=== PATIENT | female | born 1995 | race Caucasian/White ===

== ENCOUNTER 2019-11-27 04:46 | Emergency (ER) | payer SELFPAY ==
[2019-11-27 05:03] VITALS: BP 133/83
[2019-11-27 06:00] LABS: Bacteria,Urine 1+ /HPF (Negative); Bilirubin,Urine NEG (Negative); Blood,Urine NEG (Negative); Color,Urine Yellow (Yellow); Mucus,Urine FEW /HPF
[2019-11-27 06:01] LABS: HCG Qualitative,Urine Negative (Negative)
--- NOTE | 2019-11-27 06:36 | Emergency Department Report ---
ED Female HPI - General Chief complaint: Urogenital-Female Stated complaint: SIDE PAIN/ABD BURNING Time Seen by Provider: 11/27/19 06:30 Source: patient Mode of arrival: Ambulatory Limitations: No Limitations - History of Present Illness Initial comments: Ms. Goldman is a 24-year-old female who presents for right flank pain radiating to suprapubic x2 days. Has a history of frequent UTI. States urinary frequency and urgency there is no dysuria no hematuria she denies vaginal discharge no concern for STI. There is no fevers or chills no nausea vomiting. Patient denies history of renal stones. Symptoms are rated at 3/10 exacerbated by voiding. Symptoms are relieved by nothing. MD Complaint: dysuria Onset/Timin -: days(s) Location: suprapubic Radiation: R flank Severity: moderate Severity scale (0 -10): 3 Quality: cramping, burning Consistency: intermittent Improves with: none Worsens with: urination Are you Now?: No Last Menstrual Period: 11/18/19 EDC: 08/24/20 Associated Symptoms: dysuria (frequency , urgency ) - Related Data Sexually active: Yes : 1 Para: 1 A: 0 Previous Rx's Medication Instructions Recorded Last Taken Type Ferrous Sulfate [Feosol 325 MG tab] 325 mg PO BID #60 tablet 06/04/16 Unknown Rx Ibuprofen [Motrin 600 MG tab] 600 mg PO Q6H #30 tablet 06/04/16 Unknown Rx oxyCODONE /ACETAMINOPHEN [Percocet 2 tab PO Q4H PRN #30 tablet 06/04/16 Unknown Rx 5/325 mg] Ibuprofen [Motrin 800 MG tab] 800 mg PO Q8HR PRN #30 tablet 11/27/19 Unknown Rx Nitrofurantoin [place]/M-Cryst 100 mg PO BID 7 Days #14 capsule 11/27/19 Unknown Rx [Macrobid CAP] Allergies Allergy/AdvReac Type Severity Reaction Status Date / Time No Known Allergies Allergy Unverified 06/03/16 09:10 ED Review of Systems ROS: Stated complaint: SIDE PAIN/ABD BURNING Other details as noted in HPI Constitutional: denies: chills, fever Eyes: denies: eye pain, eye discharge, vision change ENT: denies: ear pain, throat pain Respiratory: denies: cough, shortness of breath, wheezing Cardiovascular: denies: chest pain, palpitations Endocrine: no symptoms reported Gastrointestinal: denies: abdominal pain, nausea, diarrhea Genitourinary: urgency, frequency. denies: dysuria, hematuria, discharge, dyspareunia Musculoskeletal: denies: back pain, joint swelling, arthralgia Skin: denies: rash, lesions Neurological: denies: headache, weakness, paresthesias Psychiatric: denies: anxiety, depression Hematological/Lymphatic: denies: easy bleeding, easy bruising ED Past Medical Hx - Past Medical History Hx Hypertension: No Hx Diabetes: No Hx Deep Vein Thrombosis: No Hx Renal Disease: No Hx Sickle Cell Disease: No Hx Seizures: No Hx Asthma: No Hx COPD: No Hx HIV: No - Social History Smoking Status: Never Smoker Substance Use Type: None - Medications Home Medications: Home Medications Medication Instructions Recorded Confirmed Last Taken Type Ferrous Sulfate [Feosol 325 MG tab] 325 mg PO BID #60 tablet 06/04/16 Unknown Rx Ibuprofen [Motrin 600 MG tab] 600 mg PO Q6H #30 tablet 06/04/16 Unknown Rx oxyCODONE /ACETAMINOPHEN [Percocet 2 tab PO Q4H PRN #30 tablet 06/04/16 Unknown Rx 5/325 mg] Ibuprofen [Motrin 800 MG tab] 800 mg PO Q8HR PRN #30 tablet 11/27/19 Unknown Rx Nitrofurantoin [place]/M-Cryst 100 mg PO BID 7 Days #14 capsule 11/27/19 Unknown Rx [Macrobid CAP] ED Physical Exam - General Limitations: No Limitations General appearance: alert, in no apparent distress - Head Head exam: Present: atraumatic, normocephalic - Eye Eye exam: Present: normal appearance, PERRL, EOMI Pupils: Present: normal accommodation - ENT ENT exam: Present: mucous membranes moist - Neck Neck exam: Present: normal inspection, full ROM. Absent: tenderness - Respiratory Respiratory exam: Present: normal lung sounds bilaterally. Absent: respiratory distress, wheezes, stridor, chest wall tenderness - Cardiovascular Cardiovascular Exam: Present: regular rate, normal rhythm, normal heart sounds. Absent: systolic murmur, diastolic murmur, rubs, gallop - GI/Abdominal GI/Abdominal exam: Present: soft, normal bowel sounds. Absent: distended, tenderness, guarding, rebound, rigid, bruit, hernia - Rectal Rectal exam: Present: deferred - Extremities Exam Extremities exam: Present: normal inspection, full ROM. Absent: tenderness - Back Exam Back exam: Present: normal inspection, full ROM, CVA tenderness (R) - Neurological Exam Neurological exam: Present: alert, oriented X3, normal gait - Psychiatric Psychiatric exam: Present: normal affect, normal mood - Skin Skin exam: Present: warm, dry, intact, normal color. Absent: rash ED Course Vital Signs 11/27/19 04:52 Temperature 97.6 F Pulse Rate 97 H Respiratory 18 Rate Blood Pressure 133/83 O2 Sat by Pulse 98 Oximetry ED Medical Decision Making - Lab Data Labs 11/27/19 05:00 Urine Color Yellow Urine Turbidity Slightly-cloudy Urine pH 6.0 Ur Specific [place] 1.032 H Urine Protein 100 mg/dl Urine Glucose (UA) Neg Urine Ketones Neg Urine Blood Neg Urine Nitrite Neg Urine Bilirubin Neg Urine Urobilinogen 2.0 Ur Leukocyte Esterase Mod Urine WBC (Auto) 7.0 H Urine RBC (Auto) 5.0 U Epithel Cells (Auto) 5.0 Urine Bacteria (Auto) 1+ Urine Mucus Few Urine HCG, Qual Negative - Medical Decision Making This is a UTI, plan Macrobid and ibuprofen follow-up with PCP in 2 to 3 days . patient verbalizes agreement and understanding with discharge plan. DC to home in stable condition at this time Critical care attestation.: If time is entered above; I have spent that time in minutes in the direct care of this critically ill patient, excluding procedure time. ED Disposition Clinical Impression: UTI (urinary tract infection) Qualifiers: Urinary tract infection type: acute cystitis Hematuria presence: without hematuria Qualified Code(s): N30.00 - Acute cystitis without hematuria Disposition: DC-01 TO HOME OR SELFCARE Is pt being admited?: No Does the pt Need Aspirin: No Condition: Stable Instructions: Urinary Tract Infection in Women (ED) Prescriptions: Nitrofurantoin [place]/M-Cryst [Macrobid CAP] 100 mg PO BID 7 Days #14 capsule Ibuprofen [Motrin 800 MG tab] 800 mg PO Q8HR PRN #30 tablet PRN Reason: pain Referrals: [facility] [Outside] - 3-5 Days Forms: Work/School Release Form(ED) Time of Disposition: 06:38
== END 2019-11-27 06:42 | disposition home or self-care (01) ==
LOC: ED 04:46
DX: N39.0 Urinary tract infection, site not specified (principal); Z79.899 Other long term (current) drug therapy
CPT/HCPCS: 81001; 81025

== ENCOUNTER 2020-08-13 08:30 | Inpatient (IN) | payer OTHER ==
[2020-08-13] MEDS ORDERED: TERBUTALINE 1 MG/1 ML INJ SUB-Q PRN (10:50)
[2020-08-13] MEDS ORDERED: AMPICILLIN/NS 2 GM/100 ML 2 GM/100 ML BAG IV ONE (10:50)
[2020-08-13] MEDS ORDERED: LIDOCAINE (2%) 20 MG/1 ML VIAL 20 ML MDV INFILTRATI ONE (11:00)
[2020-08-13] MEDS ORDERED: fentaNYL 100 MCG/2 ML INJ IV PRN (11:00)
[2020-08-13] MEDS ORDERED: OXYTOCIN DRIP 30 UNITS/500 ML BAG IV SCH ×3 (11:00→19:00)
[2020-08-13] MEDS ORDERED: ONDANSETRON 4 MG/2 ML INJ IV PRN ×2 (11:00→20:41)
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
[2020-08-13] MEDS ORDERED: BUTORPHANOL 2 MG/1 ML INJ IV PRN (11:30)
[2020-08-13 11:46] LABS: Hematocrit 34.9 % (30.3-42.9); Hemoglobin 11.3 gm/dl (10.1-14.3); Mean Corpuscular HGB Conc 32 % (30-34); Mean Corpuscular Volume 78 fl (79-97); Platelet Count 215 K/mm3 (140-440); Red Cell Distribution Width 18.1 % (13.2-15.2)
--- NOTE | 2020-08-13 11:53 | Ultrasound Report ---
OB ULTRASOUND >= 14 WEEKS FETUS INDICATION: wellbeing COMPARISON: None at this facility FINDINGS: A single gestation intrauterine is present with cephalic presentation. heart tones me asure 140 bpm. Amniotic fluid volume is normal with a fluid index of 9.3. anatomical survey was not performed. Biparietal diameter is 8.6 cm which equals 34 weeks 6 days. Head circumference is 32.6 cm which equals 37 weeks 0 days. Abdominal circumference is 34.8 cm which equals 33 weeks 5 days. Femur length is 7.3 cm which equals 37 weeks 4 days. Overall estimated sonographic age is 37 weeks 0 days. Clinical age is given as 41 weeks 1 day. Cephalic index: 75.8 HC/AC ratio 0.94 Estimated weight: 3304 g +/- 489 g. IMPRESSION: Viable single intrauterine as described Signer Name: Michael Ojeda Jr, MD Signed: 08/13/2020 11:48 AM Workstation Name: [id number]
[2020-08-13] MEDS: LACTATED RINGERS 1,000 ML IV SCH ×2 (12:20→20:00)
[2020-08-13] MEDS: AMPICILLIN/NS 1 GM/50 ML 1 GM/50 ML BAG IV SCH (16:32)
[2020-08-13] MEDS ORDERED: NALOXONE 2 MG/2 ML INJ IV PRN (20:41)
[2020-08-13] MEDS ORDERED: diphenhydrAMINE 50 MG/ML VIAL IV PRN (20:41)
[2020-08-13] MEDS ORDERED: NalbUPHINE 10 MG/1 ML INJ IV PRN (20:41)
[2020-08-13] MEDS ORDERED: DEXMEDETOMIDINE 200 MCG/2 ML VIAL IV ONE (20:43)
--- NOTE | 2020-08-13 20:46 | Anesthesia Consultation ---
Anesthesia Consult and Med Hx Date of service: 08/13/20 - Airway Anesthetic Teeth Evaluation: Good ROM Head & Neck: Adequate Mental/Hyoid Distance: Adequate Mallampati Class: Class II Intubation Access Assessment: Probably Good - Pulmonary Exam CTA: Yes - Cardiac Exam Cardiac Exam: RRR - Pre-Operative Health Status ASA Pre-Surgery Classification: ASA2 Proposed Anesthetic Plan: Epidural - Pulmonary Hx Smoking: No Hx Asthma: No COPD: No Hx Pneumonia: No Hx Sleep Apnea: No - Cardiovascular System Hx Hypertension: No Hx Heart Attack/AMI: No - Central Nervous System Hx Seizures: No Hx Psychiatric Problems: No - Gastrointestinal Hx Gastroesophageal Reflux Disease: No - Endocrine Hx Renal Disease: No Hx End Stage Renal Disease: No Hx Insulin Dependent Diabetes: No Hx Non-Insulin Dependent Diabetes: No Hx Hypothyroidism: No Hx Hyperthyroidism: No - Hematic Hx Anemia: Yes (taking iron) Hx Sickle Cell Disease: No - Other Systems Hx Alcohol Use: No
[2020-08-13] MEDS ORDERED: fentaNYL-BUPIV 2 MCG/ML-0.125% 200 MCG/100 ML BAG EPIDURAL SCH (21:00)
--- NOTE | 2020-08-13 21:02 | Progress Note ---
Labor Epidural - Labor Epidural Start Time: 20:50 Stop Time: 21:02 Performed by:: MARGIE PIRES ([facility]) Procedure: Patient is requesting a laboring epidural for laboring pain. Patient IDed, H&P reviewed, all questions and concerns were answered, and consent was signed. Timeout was performed at bedside. Patient in sitting position. Sterile prep and drape was performed. 3ml of 1% lidocaine skin wheal at L[3]- L [4]. 18-gauge Touhy epidural needle was advanced to loss of resistance with air technique. Negative CSF negative blood. Epidural catheter advanced to [14] centimeters. [-] Aspiration [-] test dose. Sterile dressing applied. Patient tolerated procedure.
[2020-08-13] MEDS: ePHEDrine SULFATE 50 MG/1 ML INJ IV PRN ×2 (21:08→21:21)
[2020-08-13] MEDS ORDERED: MINERAL OIL 30 ML ORAL LIQD PO PRN (22:00)
[2020-08-14] MEDS: AMPICILLIN/NS 1 GM/50 ML 1 GM/50 ML BAG IV SCH (02:55)
[2020-08-14] MEDS: LACTATED RINGERS 1,000 ML IV SCH (03:59)
[2020-08-14] MEDS ORDERED: LIDOCAINE (2%) 20 MG/1 ML VIAL 20 ML MDV INFILTRATI ONE (04:27)
[2020-08-14] MEDS ORDERED: diphenhydrAMINE 25 MG CAP PO PRN (05:15)
[2020-08-14] MEDS ORDERED: WITCH HAZEL/ GLYCERIN PAD TP PRN (05:15)
[2020-08-14] MEDS ORDERED: ACETAMINOPHEN 325 MG TAB PO PRN (05:15)
[2020-08-14] MEDS ORDERED: BENZOCAINE/MENTHOL 20/0.5% TOP SPRAY 56 GM TP PRN (05:15)
[2020-08-14] MEDS ORDERED: HYDROCORTISONE 25 MG RECTAL SUPP PR PRN (05:15)
[2020-08-14] MEDS ORDERED: MAGNESIUM HYDROXIDE (MOM) ORAL LIQD UDC PO PRN (05:15)
[2020-08-14] MEDS ORDERED: ONDANSETRON 4 MG/2 ML INJ IV PRN (05:15)
[2020-08-14] MEDS ORDERED: PROMETHAZINE 25 MG RECT SUPP PR PRN (05:15)
[2020-08-14] MEDS ORDERED: LANOLIN/ZINC/DIMETHICONE (LANSINOH) 7 GM TP PRN (05:15)
[2020-08-14] MEDS ORDERED: PROMETHAZINE 25 MG TAB PO PRN (05:15)
--- NOTE | 2020-08-14 05:15 | Procedure Note ---
OB Delivery Note - Delivery Date of Delivery: 08/14/20 Surgeon: KIM MOORE JR Estimated blood loss: 300cc - Vaginal Delivery presentation: vertex Delivery position: OA Delivery induction: oxytocin Delivery augmentation: pitocin Delivery monitor: external FHT Route of delivery: Delivery placenta: spontaneous Episiotomy: none Delivery laceration: 2nd degree Delivery repair: chromic Anesthesia: local, epidural Delivery comments: Delivery of male at 0420. Weight 3357g. Length 19 inches. Apgars 8/9. Positive void at delivery. Second-degree perineal laceration repaired with 2-0 chromic on SH. - A at 1 minute: 8 at 5 minutes: 9 Gender: Male
[2020-08-14] MEDS ORDERED: OXYTOCIN DRIP 30 UNITS/500 ML BAG IV SCH (06:00)
[2020-08-14] MEDS: IBUPROFEN 600 MG TAB PO SCH ×3 (09:03→23:17)
[2020-08-14] MEDS: oxyCODONE /ACETAMINOPHEN 5-325MG TAB PO PRN ×2 (10:30→20:53)
--- NOTE | 2020-08-14 13:53 | Post Anesthesia Evaluation ---
- Post Anesthesia Evaluation Patient Participated: Yes Airway Patent: Yes Stable Respiratory Function: Yes Nausea/Vomiting: No Temp > 96.8F: Yes Pain Manageable: Yes Adequeate Hydration: Yes Anesthesia Complications: No Block Receding Appropriately: Yes Patient on Ventilator: No
[2020-08-14 18:56] LABS: Hematocrit 30.2 % (30.3-42.9); Hemoglobin 9.7 gm/dl (10.1-14.3)
[2020-08-15] MEDS: oxyCODONE /ACETAMINOPHEN 5-325MG TAB PO PRN ×2 (06:15→16:33)
[2020-08-15] MEDS: IBUPROFEN 600 MG TAB PO SCH ×4 (06:15→18:05)
--- NOTE | 2020-08-15 08:17 | Progress Note ---
Assessment and Plan A: day 1 S/P . Anemia. P: Supplement with iron. Continue current management. Subjective - Subjective Date of service: 08/15/20 Principal diagnosis: day 1 Patient reports: appetite normal, voiding normally, pain well controlled, flatus, ambulating normally, no dizzy ambulation, no nauseated : doing well Objective - Vital Signs Latest vital signs: Vital Signs Temp Pulse Resp BP Pulse Ox 08/15/20 07:35 97.5 F L 65 18 91/42 97 08/15/20 00:22 97.9 F 83 18 111/71 97 08/14/20 15:46 97.8 F 83 18 105/58 94 08/14/20 12:40 97.4 F L 83 18 111/61 97 Intake and Output 08/14/20 08/15/20 08/15/20 23:59 07:59 15:59 Intake Total 600 480 Output Total 600 Balance 0 480 Intake: Oral 240 480 Intake, Free Water 360 Output: Urine 600 Void 600 Other: Total, Intake Amount 240 240 Total, Output Amount 600 # Voids Void 1 1 - Exam Cardiovascular: Present: Regular rate, No murmurs Lungs: Present: Clear to auscultation Abdomen: Present: normal appearance, soft. Absent: distention, tenderness, guarding, rigidity Uterus: Present: normal, firm, fundal height below umbilicus. Absent: bogginess, tenderness Extremities: Present: normal. Absent: tenderness - Labs Labs: Abnormal lab results 08/14/20 Range/Units 18:05 Hgb 9.7 L (10.1-14.3) gm/dl Hct 30.2 L (30.3-42.9) %
[2020-08-15] MEDS ORDERED: FERROUS SULFATE 325 MG TAB PO SCH (10:00)
--- NOTE | 2020-08-15 18:19 | Discharge Summary ---
Providers - Providers Date of Admission: 08/13/20 10:50 Date of discharge: 08/15/20 Attending physician: ANJANA CASIANO Primary care physician: ANJANA CASIANO Hospitalization Reason for admission: induction of labor Delivery: Episiotomy: none Laceration: 2nd degree Other procedures: none complications: none Discharge diagnosis: IUP at term delivered [place] baby: male Pertinent studies: Labs Hospital course: Stable hospital course Condition at discharge: Good Disposition: DC-01 TO HOME OR SELFCARE - Discharge Diagnoses (1) Term delivered Status: Acute (2) Anemia Status: Acute Plan - Provider Discharge Summary Activity: routine, no sex for 6 weeks, no heavy lifting 4 weeks, no strenuous exercise Diet: routine Instructions: routine Additional instructions: Continue taking your vitamins and iron supplements at home. Call your doctor immediately for: * Fever > 100.5 * Heavy vaginal bleeding ( >1 pad per hour) * Severe persistent headache * Shortness of breath * Reddened, hot, painful area to leg or breast - Follow up plan Follow up: ANJANA CASIANO MD [Primary Care Provider] - 6 Weeks Forms: [facility] Discharge Summary
[2020-08-15 21:25] VITALS: BP 101/77
== END 2020-08-15 21:55 | disposition home or self-care (01) | DRG 807 ==
LOC: TRG 08:30 → APU 08:32 → TRG 10:50 → LD 10:51 → OB 08-14 08:54
PROVIDERS: ADMIT Obstetrics & Gynecology; ATTEND Obstetrics & Gynecology
PROC: 10E0XZZ Delivery of Products of Conception, External Approach (ICD-10-PCS; principal; 2020-08-14)
PROC: 0KQM0ZZ Repair Perineum Muscle, Open Approach (ICD-10-PCS; 2020-08-14)
PROC: 3E033VJ Introduction of Other Hormone into Peripheral Vein, Percutaneous Approach (ICD-10-PCS; 2020-08-14)
PROC: 3E0R3BZ Introduction of Anesthetic Agent into Spinal Canal, Percutaneous Approach (ICD-10-PCS; 2020-08-14)
PROC: 00HU33Z Insertion of Infusion Device into Spinal Canal, Percutaneous Approach (ICD-10-PCS; 2020-08-14)
DX: O99.214 Obesity complicating childbirth (principal); Z37.0 Single live birth; O99.02 Anemia complicating childbirth; Z20.828 Contact with and (suspected) exposure to other viral communicable diseases; E66.01 Morbid (severe) obesity due to excess calories; O70.1 Second degree perineal laceration during delivery; Z83.3 Family history of diabetes mellitus; Z3A.41 41 weeks gestation of pregnancy; Z82.5 Family history of asthma and other chronic lower respiratory diseases; Z79.899 Other long term (current) drug therapy
CPT/HCPCS: 36415; 76816; 85014; 85018; 85027; 86850; 86900; 86901; G0378; A6250; J0290; J2590; J7120; U0003